=== PATIENT | male | born 1945 | race African-American/Black ===

== ENCOUNTER 2017-05-31 12:42 | Emergency (ER) | payer OTHER ==
[~2017-05-31] VITALS: Ht 172.7 cm; Wt 80.0 kg
[~2017-05-31 12:42] MED LIST: ATOR10TA PO; PHEN100C4 PO
[2017-05-31 12:45] VITALS: BP 147/93
== END 2017-05-31 13:55 | disposition home or self-care (01) ==
LOC: ER 13:14
DX: I10 Essential (primary) hypertension (principal); Z53.21 Procedure and treatment not carried out due to patient leaving prior to being seen by health care provider
CPT/HCPCS: 99283

== ENCOUNTER 2018-05-06 14:48 | Inpatient (IN) | payer OTHER ==
[~2018-05-06] VITALS: Ht 172.7 cm; Wt 85.7 kg
[2018-05-06] MEDS ORDERED: IPRATROPIUM BROMIDE (0.02%) 0.5MG/2.5ML NEB HHN STA (22:04)
[2018-05-06] MEDS ORDERED: METHYLPREDNISOLONE SOD SUCC 125 MG/2 ML VIAL IV STA (22:04)
[2018-05-06] MEDS ORDERED: ALBUTEROL (0.083%) 2.5MG/3ML NEB HHN STA (22:04)
[2018-05-06] MEDS ORDERED: ALBUTEROL (0.5%) 2.5MG/0.5ML NEB HHN ONE (22:20)
[2018-05-06 22:53] LABS: BASOPHILS % 0.6 % (0.0-2.0); EOSINOPHILS % 2.9 % (0.0-5.0); HEMATOCRIT. 40.4 % (42.0-52.0); HEMOGLOBIN. 14.1 g/dL (14.0-18.0); LYMPHOCYTES % 33.5 % (20.0-50.0); MEAN CORPUSCULAR VOLUME 88.7 fL (80.0-94.0); MEAN PLATELET VOLUME 9.4 fl (7.4-10.4); MONOCYTES % 7.1 % (2.0-8.0); NEUTROPHILS % 55.9 % (40.0-76.0); PLATELET 122 x1000/uL (130-400); RED BLOOD CELL COUNT 4.56 mill/uL (4.7-6.1)
[2018-05-06 22:58] LABS: CHLORIDE 107 mEq/L (98-107)
[2018-05-06 22:58] LABS: CLARITY URINE CLOUDY (CLEAR); COLOR URINE YELLOW (YELLOW); KETONES URINE NEGATIVE (NEGATIVE); LEUKOCYTE ESTERASE URINE 2+ (NEGATIVE); NITRITE URINE POSITIVE (NEGATIVE); OCCULT BLOOD URINE NEGATIVE (NEGATIVE); PROTEIN URINE NEGATIVE (NEGATIVE); SPECIFIC GRAVITY URINE 1.015 (1.005-1.030)
[2018-05-06 23:10] LABS: INR 2.1; PROTHROMBIN TIME 20.7 sec (9.1-11.1)
[2018-05-07] MEDS ORDERED: CEFTRIAXONE 1 G PREMIX 50 ML IV ONE (00:45)
[2018-05-07] MEDS ORDERED: IPRATROPIUM/ALBUTEROL 0.5-3(2.5)MG/3ML NEB HHN SCH (12:45)
[2018-05-07] MEDS ORDERED: SODIUM CHLORIDE 0.9% 1,000 ML IV SCH (12:45)
[2018-05-07] MEDS ORDERED: LEVETIRACETAM 250MG TABLET PO SCH (13:00)
[2018-05-07 17:30] VITALS: BP 146/83
[2018-05-07] MEDS ORDERED: ACETAMINOPHEN 325MG TABLET PO PRN (17:45)
[2018-05-07] MEDS ORDERED: ONDANSETRON HCL 4MG/2ML INJ IV PRN (17:45)
[2018-05-07] MEDS ORDERED: CLONIDINE 0.1MG TABLET PO PRN (17:45)
[2018-05-07] MEDS ORDERED: IPRATROPIUM/ALBUTEROL 0.5-3(2.5)MG/3ML NEB INH PRN (17:45)
[2018-05-07] MEDS ORDERED: LEVETIRACETAM 500 MG in SODIUM CHLORIDE 0.9% 100 ML IV SCH (18:00)
[2018-05-07] MEDS: DEXAMETHASONE 4MG/ML 1ML VIAL IV SCH (18:48)
[2018-05-07] MEDS: METHYLPREDNISOLONE SOD SUCC 40 MG/ML VIAL IV SCH (18:48)
[2018-05-07] MEDS ORDERED: SIMV10TA6 MT (19:22)
[2018-05-07] MEDS ORDERED: XALAO EACHEYE (19:22)
[2018-05-07] MEDS ORDERED: LEVE750T4 MT (19:22)
[2018-05-07] MEDS ORDERED: PANT20TA3 MT (19:22)
[2018-05-07] MEDS ORDERED: AMLO5TAB88 MT (19:22)
[2018-05-07] MEDS ORDERED: WARF3TAB58 PO (19:39)
[2018-05-07 20:00] VITALS: BP 144/86
[2018-05-07] MEDS ORDERED: DEXTROSE 50% WATER 50ML SYRINGE IV PRN (20:00)
[2018-05-07] MEDS: AZITHROMYCIN 500 MG in DEXT 5% WATER 250 ML IV SCH (20:06)
[2018-05-07] MEDS: FAMOTIDINE 20MG TABLET PO SCH (20:06)
[2018-05-07] MEDS: SODIUM CHLORIDE 0.9% 1,000 ML IV SCH (20:07)
[2018-05-07] MEDS: BLOOD SUGAR DIAGNOSTIC STRIP TEST SCH (20:07)
[2018-05-07] MEDS: INSULIN LISPRO 100 UNITS/ML SUBCUT SCH (21:00)
[2018-05-07] MEDS: IPRATROPIUM/ALBUTEROL 0.5-3(2.5)MG/3ML NEB HHN SCH (21:22)
[2018-05-07] MEDS: LEVETIRACETAM 500MG in SODIUM CHLORIDE 0.9% 100ML IV SCH (21:41)
[2018-05-07 22:00] VITALS: BP 149/78
[2018-05-08] VITALS (16 sets, daily range): BP systolic 103–159; BP diastolic 60–93
[2018-05-08 00:30] LABS: CREATINE KINASE 311 IU/L (39-308); CREATINE KINASE MB FRACTION 3.4 ng/mL (0.5-3.6)
[2018-05-08] MEDS: DEXAMETHASONE 4MG/ML 1ML VIAL IV SCH ×4 (00:46→18:00)
[2018-05-08] MEDS: CEFTRIAXONE 1 G PREMIX 50 ML IV SCH (00:47)
[2018-05-08] MEDS: IPRATROPIUM/ALBUTEROL 0.5-3(2.5)MG/3ML NEB HHN SCH ×6 (01:00→20:23)
[2018-05-08] MEDS: METHYLPREDNISOLONE SOD SUCC 40 MG/ML VIAL IV SCH ×2 (02:43→10:19)
[2018-05-08] MEDS: BLOOD SUGAR DIAGNOSTIC STRIP TEST SCH ×4 (06:21→21:07)
[2018-05-08] MEDS: SODIUM CHLORIDE 0.9% 1,000 ML IV SCH ×2 (06:22→21:16)
[2018-05-08 06:35] LABS: INR 1.9; PARTIAL THROMBOPLASTIN TIME 35.6 sec (23.4-31.0); PROTHROMBIN TIME 19.2 sec (9.1-11.1)
[2018-05-08 06:51] LABS: HEMATOCRIT. 41.2 % (42.0-52.0); HEMOGLOBIN. 14.2 g/dL (14.0-18.0); MEAN CORPUSCULAR HEMOGLOBIN 30.9 pg (28.0-32.0); MEAN CORPUSCULAR VOLUME 89.4 fL (80.0-94.0); MEAN PLATELET VOLUME 10.7 fl (7.4-10.4); PLATELET 134 x1000/uL (130-400); RED CELL DISTRIBUTION WIDTH 13.9 % (11.6-14.6)
[2018-05-08 06:59] LABS: CHLORIDE 108 mEq/L (98-107)
[2018-05-08 07:15] LABS: CREATINE KINASE 284 IU/L (39-308)
[2018-05-08] MEDS: INSULIN LISPRO 100 UNITS/ML SUBCUT SCH ×5 (07:20→21:00)
[2018-05-08] MEDS ORDERED: CEFTRIAXONE 1 G PREMIX 50 ML IV SCH (09:00)
[2018-05-08] MEDS ORDERED: GADOBENATE DIMEGLUMINE 529 MG/ML 10ML IV ONE (09:04)
[2018-05-08] MEDS: FAMOTIDINE 20MG TABLET PO SCH ×2 (10:17→21:16)
[2018-05-08] MEDS: LEVETIRACETAM 500MG in SODIUM CHLORIDE 0.9% 100ML IV SCH ×2 (10:17→22:28)
[2018-05-08 13:50] LABS: PLATELET ESTIMATE NORMAL
[2018-05-08] MEDS ORDERED: ACETAMINOPHEN 325MG TABLET PO PRN (16:00)
[2018-05-08] MEDS ORDERED: ACETAMINOPHEN 650MG SUPP PR PRN (16:00)
[2018-05-08 17:35] LABS: BG BASE EXCESS -1.1 mmol/L (-2.0-2.0); BG CARBOXYHEMOGLOBIN 0.9 % (0.5-1.5); BG DEOXYHEMOGLOBIN 4.8 % (0.0-5.0); BG FRACTION INSPIRED OXYGEN 21; BG HCO3 ACT 21.9 mmol/L (22.0-26.0); BG METHEMOGLOBIN 0.4 % (0.0-1.5); BG OXYGEN SATURATION 95.1 % (92.0-98.5); BG OXYHEMOGLOBIN 93.9 % (94.0-97.0); BG PCO2 32.2 mmHg (35.0-45.0); BG PO2 72.7 mmHg (75.0-100.0); BG SAMPLE SITE RIGHT RADIAL; BG TOTAL HEMOGLOBIN 15.1 g/dL (12.0-18.0); BG VENT MODE ROOM AIR
[2018-05-08] MEDS: AZITHROMYCIN 500 MG in DEXT 5% WATER 250 ML IV SCH (21:16)
[2018-05-08] MEDS: ENOXAPARIN 80MG/0.8ML SYR SUBCUT SCH (21:17)
[2018-05-09] VITALS (12 sets, daily range): BP systolic 96–158; BP diastolic 32–89
[2018-05-09] MEDS: IPRATROPIUM/ALBUTEROL 0.5-3(2.5)MG/3ML NEB HHN SCH ×6 (00:36→20:00)
[2018-05-09] MEDS: CEFTRIAXONE 1 G PREMIX 50 ML IV SCH (00:54)
[2018-05-09] MEDS: DEXAMETHASONE 4MG/ML 1ML VIAL IV SCH ×4 (00:54→18:08)
[2018-05-09] MEDS: BLOOD SUGAR DIAGNOSTIC STRIP TEST SCH ×4 (06:03→20:41)
[2018-05-09] MEDS: INSULIN LISPRO 100 UNITS/ML SUBCUT SCH ×4 (07:20→20:42)
[2018-05-09 07:33] LABS: CHLORIDE 109 mEq/L (98-107)
[2018-05-09 07:35] LABS: HEMATOCRIT 39.7 % (42.0-52.0); HEMOGLOBIN 13.7 g/dL (14.0-18.0); MEAN CORPUSCULAR HEMOGLOBIN 30.7 pg (28.0-32.0); MEAN CORPUSCULAR VOLUME 89.2 fL (80.0-94.0); PLATELET 130 x1000/uL (130-400); RED BLOOD CELL COUNT 4.45 mill/uL (4.7-6.1)
[2018-05-09 07:40] LABS: PHOSPHORUS 3.5 mg/dL (2.5-4.9)
[2018-05-09 07:41] LABS: LDL CHOLESTEROL 87 mg/dL (5-100)
[2018-05-09 07:43] LABS: HDL CHOLESTEROL 70 mg/dL (40-59); T4 FREE 0.81 ng/dL (0.76-1.46)
[2018-05-09] MEDS: ENOXAPARIN 80MG/0.8ML SYR SUBCUT SCH ×2 (08:25→20:43)
[2018-05-09] MEDS: FAMOTIDINE 20MG TABLET PO SCH ×2 (08:25→20:43)
[2018-05-09] MEDS: LEVETIRACETAM 500MG in SODIUM CHLORIDE 0.9% 100ML IV SCH ×2 (08:25→20:43)
[2018-05-09] MEDS ORDERED: IOHEXOL-350 100 ML BOTTLE ONE (13:59)
[2018-05-09] MEDS: SODIUM CHLORIDE 0.9% 1,000 ML IV SCH ×2 (18:07→23:02)
[2018-05-10] MEDS: IPRATROPIUM/ALBUTEROL 0.5-3(2.5)MG/3ML NEB HHN SCH ×6 (01:05→20:01)
[2018-05-10] MEDS: LEVOFLOXACIN 500MG PREMIX 100 ML IV SCH ×2 (01:18→20:15)
[2018-05-10 04:00] VITALS: BP 134/93
[2018-05-10 07:07] LABS: HEMATOCRIT 40.3 % (42.0-52.0); MEAN CORPUSCULAR VOLUME 88.8 fL (80.0-94.0); PLATELET 121 x1000/uL (130-400); RED BLOOD CELL COUNT 4.54 mill/uL (4.7-6.1); RED CELL DISTRIBUTION WIDTH 13.9 % (11.6-14.6)
[2018-05-10] MEDS: BLOOD SUGAR DIAGNOSTIC STRIP TEST SCH ×4 (07:10→20:46)
[2018-05-10] MEDS: DEXAMETHASONE 4MG/ML 1ML VIAL IV SCH ×2 (07:11→18:58)
[2018-05-10 07:13] LABS: INR 1.3; PROTHROMBIN TIME 13.4 sec (9.1-11.1)
[2018-05-10 07:28] LABS: CHLORIDE 106 mEq/L (98-107)
[2018-05-10] MEDS: INSULIN LISPRO 100 UNITS/ML SUBCUT SCH ×4 (07:40→20:46)
[2018-05-10] MEDS: FAMOTIDINE 20MG TABLET PO SCH ×2 (08:27→21:26)
[2018-05-10] MEDS: LEVETIRACETAM 500MG in SODIUM CHLORIDE 0.9% 100ML IV SCH ×2 (08:27→21:26)
[2018-05-10] MEDS: ENOXAPARIN 80MG/0.8ML SYR SUBCUT SCH ×2 (08:28→21:27)
[2018-05-10 12:00] VITALS: BP 118/64
[2018-05-10] MEDS: SODIUM CHLORIDE 0.9% 1,000 ML IV SCH (12:11)
[2018-05-10 16:00] VITALS: BP 121/64
[2018-05-10 20:00] VITALS: BP 132/70
[2018-05-10] MEDS ORDERED: AZITHROMYCIN 500 MG TABLET PO SCH (21:00)
[2018-05-11] VITALS: BP 119/64
[2018-05-11] MEDS: IPRATROPIUM/ALBUTEROL 0.5-3(2.5)MG/3ML NEB HHN SCH ×5 (00:24→15:42)
[2018-05-11] MEDS: SODIUM CHLORIDE 0.9% 1,000 ML IV SCH ×2 (02:04→16:02)
[2018-05-11 04:00] VITALS: BP 115/66
[2018-05-11] MEDS: DEXAMETHASONE 4MG/ML 1ML VIAL IV SCH (06:20)
[2018-05-11] MEDS: INSULIN LISPRO 100 UNITS/ML SUBCUT SCH ×2 (06:53→11:55)
[2018-05-11] MEDS: BLOOD SUGAR DIAGNOSTIC STRIP TEST SCH ×2 (06:53→11:55)
[2018-05-11 08:00] VITALS: BP 123/73
[2018-05-11] MEDS: LEVETIRACETAM 500MG in SODIUM CHLORIDE 0.9% 100ML IV SCH ×2 (08:21→21:36)
[2018-05-11] MEDS: ENOXAPARIN 80MG/0.8ML SYR SUBCUT SCH ×2 (08:21→20:39)
[2018-05-11] MEDS: FAMOTIDINE 20MG TABLET PO SCH ×2 (08:21→20:39)
[2018-05-11 12:46] VITALS: BP 117/69
[2018-05-11 16:09] VITALS: BP 121/67
[2018-05-11 20:00] VITALS: BP 129/71
[2018-05-11] MEDS: LEVOFLOXACIN 500MG TABLET PO SCH (20:39)
[2018-05-12] VITALS: BP 138/76
[2018-05-12] MEDS: IPRATROPIUM/ALBUTEROL 0.5-3(2.5)MG/3ML NEB HHN SCH ×8 (00:35→21:20)
[2018-05-12 04:00] VITALS: BP 125/68
[2018-05-12 06:39] LABS: HEMATOCRIT 38.3 % (42.0-52.0); HEMOGLOBIN 13.4 g/dL (14.0-18.0); MEAN CORPUSCULAR HEMOGLOBIN 31.3 pg (28.0-32.0); MEAN CORPUSCULAR VOLUME 89.3 fL (80.0-94.0); PLATELET 110 x1000/uL (130-400); RED BLOOD CELL COUNT 4.29 mill/uL (4.7-6.1); RED CELL DISTRIBUTION WIDTH 13.7 % (11.6-14.6)
[2018-05-12] MEDS: SODIUM CHLORIDE 0.9% 1,000 ML IV SCH ×3 (07:29→21:10)
[2018-05-12 07:50] LABS: CHLORIDE 109 mEq/L (98-107)
[2018-05-12 08:00] VITALS: BP 149/80
[2018-05-12] MEDS: FAMOTIDINE 20MG TABLET PO SCH ×2 (08:41→20:54)
[2018-05-12] MEDS: LEVETIRACETAM 500MG in SODIUM CHLORIDE 0.9% 100ML IV SCH ×2 (08:41→21:08)
[2018-05-12] MEDS: DEXAMETHASONE 4MG/ML 1ML VIAL IV SCH (08:42)
[2018-05-12] MEDS: ENOXAPARIN 80MG/0.8ML SYR SUBCUT SCH ×2 (08:43→20:54)
[2018-05-12] MEDS ORDERED: MAGNESIUM/ALUMINUM HYDROXIDE/SIMETHICONE 30ML UDC PO PRN (10:30)
[2018-05-12 12:00] VITALS: BP 104/68
[2018-05-12 16:39] VITALS: BP 125/62
[2018-05-12 20:00] VITALS: BP 113/68
[2018-05-12] MEDS: LEVOFLOXACIN 500MG TABLET PO SCH (20:54)
[2018-05-13] VITALS: BP 114/66
[2018-05-13] MEDS: IPRATROPIUM/ALBUTEROL 0.5-3(2.5)MG/3ML NEB HHN SCH ×5 (01:50→15:04)
[2018-05-13 04:00] VITALS: BP 126/72
[2018-05-13 08:00] VITALS: BP 116/55
[2018-05-13] MEDS: LEVETIRACETAM 500MG in SODIUM CHLORIDE 0.9% 100ML IV SCH (08:36)
[2018-05-13] MEDS: FAMOTIDINE 20MG TABLET PO SCH (08:36)
[2018-05-13] MEDS: DEXAMETHASONE 4MG/ML 1ML VIAL IV SCH (08:36)
[2018-05-13] MEDS: ENOXAPARIN 80MG/0.8ML SYR SUBCUT SCH (10:01)
[2018-05-13 12:00] VITALS: BP 116/79
[2018-05-13 15:42] VITALS: BP 116/79
[2018-05-13 16:00] VITALS: BP 143/80
== END 2018-05-13 19:40 | DRG 190 ==
LOC: ER 14:48 → 8WST 05-07 01:36 → EDBEDREQ 05-07 01:39 → ENRESERV 05-07 15:23 → 3WST 05-07 21:58 → 8WST 05-09 22:19
PROVIDERS: ADMIT Internal Medicine; ATTEND Internal Medicine
PROC: 4A00X4Z Measurement of Central Nervous Electrical Activity, External Approach (ICD-10-PCS; principal; 2018-05-09)
DX: J44.1 Chronic obstructive pulmonary disease with (acute) exacerbation (principal); G93.6 Cerebral edema; N39.0 Urinary tract infection, site not specified; M47.12 Other spondylosis with myelopathy, cervical region; D68.9 Coagulation defect, unspecified; E86.0 Dehydration; I10 Essential (primary) hypertension; G40.909 Epilepsy, unspecified, not intractable, without status epilepticus; G93.9 Disorder of brain, unspecified; K21.9 Gastro-esophageal reflux disease without esophagitis; M48.061 Spinal stenosis, lumbar region without neurogenic claudication; Z79.01 Long term (current) use of anticoagulants; Z85.841 Personal history of malignant neoplasm of brain; Z86.711 Personal history of pulmonary embolism; Z86.718 Personal history of other venous thrombosis and embolism; Z86.73 Personal history of transient ischemic attack (TIA), and cerebral infarction without residual deficits; Z92.3 Personal history of irradiation; Z92.21 Personal history of antineoplastic chemotherapy; R27.0 Ataxia, unspecified; B96.20 Unspecified Escherichia coli [E. coli] as the cause of diseases classified elsewhere; T38.0X5A Adverse effect of glucocorticoids and synthetic analogues, initial encounter; Y92.89 Other specified places as the place of occurrence of the external cause; R29.6 Repeated falls
CPT/HCPCS: 36415; 36600; 70544; 70553; 71045; 71275; 72141; 72148; 74174; 80048; 80061; 80185; 82375; 82550; 82553; 82805; 82962; 83036; 83735; 83880; 84100; 84439; 84443; 84484; 85027; 87077; 87186; 93005; 93306; 93970; 94640; 96365; 96366; 97112; 97116; 97162; 99285; A9577; J0456; J0696; J1100; J1650; J1815; J1953; J1956; J2920; J2930; J7030; J7050; J7060; J7611; J7620; Q9967

== ENCOUNTER 2018-06-17 17:01 | Inpatient (IN) | payer OTHER ==
[~2018-06-17] VITALS: Ht 170.2 cm; Wt 77.6 kg
[~2018-06-17 17:01] MED LIST changes: +AMLO5TAB88 MT; +LEVE750T4 MT; +PANT20TA3 MT; +SIMV10TA6 MT; +WARF3TAB58 PO; +XALAO EACHEYE
[2018-06-17 19:30] LABS: BASOPHILS % 0.5 % (0.0-2.0); EOSINOPHILS % 1.3 % (0.0-5.0); HEMATOCRIT. 44.5 % (42.0-52.0); HEMOGLOBIN. 15.8 g/dL (14.0-18.0); LYMPHOCYTES % 28.5 % (20.0-50.0); MEAN CORPUSCULAR HEMOGLOBIN 31.2 pg (28.0-32.0); MEAN CORPUSCULAR VOLUME 88.1 fL (80.0-94.0); MEAN PLATELET VOLUME 9.1 fl (7.4-10.4); MONOCYTES % 5.6 % (2.0-8.0); NEUTROPHILS % 64.1 % (40.0-76.0); PLATELET 111 x1000/uL (130-400); RED BLOOD CELL COUNT 5.05 mill/uL (4.7-6.1); RED CELL DISTRIBUTION WIDTH 14.4 % (11.6-14.6)
[2018-06-17] MEDS ORDERED: LEVETIRACETAM IV SCH (19:30)
[2018-06-17] MEDS ORDERED: DEXAMETHASONE 10 MG/ML VIAL IV ONE (19:30)
[2018-06-17] MEDS ORDERED: SODIUM CHLORIDE 0.9% IV SCH (19:30)
[2018-06-17 19:33] LABS: CHLORIDE 107 mEq/L (98-107)
[2018-06-17 19:39] LABS: ETHANOL BLOOD < 10 mg/dL
[2018-06-17 19:42] LABS: CREATINE KINASE 148 IU/L (39-308)
[2018-06-17] MEDS ORDERED: IPRATROPIUM/ALBUTEROL 0.5-3(2.5)MG/3ML NEB HHN ONE (19:45)
[2018-06-17] MEDS ORDERED: IOHEXOL-350 100 ML BOTTLE ONE (21:02)
[2018-06-17 21:17] LABS: CLARITY URINE CLEAR (CLEAR); COLOR URINE YELLOW (YELLOW); KETONES URINE 1+ (NEGATIVE); LEUKOCYTE ESTERASE URINE NEGATIVE (NEGATIVE); NITRITE URINE NEGATIVE (NEGATIVE); OCCULT BLOOD URINE NEGATIVE (NEGATIVE); PROTEIN URINE NEGATIVE (NEGATIVE); SPECIFIC GRAVITY URINE 1.047 (1.005-1.030)
[2018-06-17 21:24] LABS: *AMPHETAMINES SCREEN URINE NEGATIVE (NEGATIVE); *BARBITURATES SCREEN URINE NEGATIVE (NEGATIVE); *BENZODIAZEPINES SCREEN URINE NEGATIVE (NEGATIVE); *COCAINE SCREEN URINE NEGATIVE (NEGATIVE); METHADONE URINE SCREEN NEGATIVE (NEGATIVE); OPIATES URINE SCREEN NEGATIVE (NEGATIVE)
[2018-06-17 21:25] LABS: CANNABINOID URINE SCREEN PRESUMTIVE POSITIVE (NEGATIVE); PHENCYCLIDINE URINE SCREEN NEGATIVE (NEGATIVE)
[2018-06-17 22:00] VITALS: BP 135/74
[2018-06-17] MEDS ORDERED: ACETAMINOPHEN 325MG TABLET PO PRN (22:00)
[2018-06-17] MEDS ORDERED: IPRATROPIUM/ALBUTEROL 0.5-3(2.5)MG/3ML NEB INH PRN (22:00)
[2018-06-17] MEDS ORDERED: ONDANSETRON HCL 4MG/2ML INJ IV PRN (22:00)
[2018-06-17 22:23] VITALS: BP 124/79
[2018-06-17 22:30] VITALS: BP 137/68
[2018-06-17] MEDS ORDERED: HYDRALAZINE 20MG/ML VIAL IV PRN (22:45)
[2018-06-17] MEDS ORDERED: MORPHINE SULFATE 4 MG/ML CPJ (NOT FOR IM USE) IV PRN (22:52)
[2018-06-17 23:00] VITALS: BP 120/64
[2018-06-17 23:30] VITALS: BP 121/80
[2018-06-17 23:32] LABS: INR 1.6; PARTIAL THROMBOPLASTIN TIME 39.4 sec (23.4-31.0); PROTHROMBIN TIME 16.5 sec (9.6-11.0)
[2018-06-18] VITALS (49 sets, daily range): BP systolic 105–146; BP diastolic 55–112
[2018-06-18 05:55] LABS: CHLORIDE 107 mEq/L (98-107)
[2018-06-18 05:57] LABS: BASOPHILS % 0.2 % (0.0-2.0); EOSINOPHILS % 0.1 % (0.0-5.0); HEMOGLOBIN. 15.9 g/dL (14.0-18.0); LYMPHOCYTES % 15.1 % (20.0-50.0); MEAN CORPUSCULAR HEMOGLOBIN 31.2 pg (28.0-32.0); MEAN CORPUSCULAR VOLUME 88.5 fL (80.0-94.0); MEAN PLATELET VOLUME 10.4 fl (7.4-10.4); MONOCYTES % 1.6 % (2.0-8.0); PLATELET 110 x1000/uL (130-400); RED BLOOD CELL COUNT 5.09 mill/uL (4.7-6.1)
[2018-06-18 06:03] LABS: LDL CHOLESTEROL 115 mg/dL (5-100)
[2018-06-18 06:04] LABS: HDL CHOLESTEROL 78 mg/dL (40-59)
[2018-06-18 06:05] LABS: T4 FREE 1.04 ng/dL (0.76-1.46)
[2018-06-18] MEDS: PANTOPRAZOLE SODIUM 40 MG/VIAL IV SCH (09:22)
[2018-06-18] MEDS: LEVETIRACETAM 500 MG in SODIUM CHLORIDE 0.9% 100 ML IV SCH ×2 (09:23→20:37)
[2018-06-18] MEDS: DEXT 5%/LACTATED RINGERS 1,000 ML IV SCH ×2 (09:23→23:30)
[2018-06-18] MEDS ORDERED: MAGNESIUM/ALUMINUM HYDROXIDE/SIMETHICONE 30ML UDC PO PRN (12:45)
[2018-06-18] MEDS ORDERED: LORAZEPAM 2MG/ML CPJ IV PRN (12:45)
[2018-06-18] MEDS ORDERED: DOCUSATE SODIUM 100MG CAPSULE PO PRN (12:45)
[2018-06-18] MEDS ORDERED: CLONIDINE 0.1MG TABLET PO PRN (12:45)
[2018-06-18] MEDS ORDERED: DEXTROSE 50% WATER 50ML SYRINGE IV PRN (12:45)
[2018-06-18] MEDS: DEXAMETHASONE 4MG/ML 1ML VIAL IV SCH ×3 (13:13→23:30)
[2018-06-18] MEDS: DIPHENHYDRAMINE 50MG/ML VIAL IV PRN (13:13)
[2018-06-18] MEDS: BLOOD SUGAR DIAGNOSTIC STRIP TEST SCH ×2 (16:30→20:38)
[2018-06-18] MEDS: INSULIN LISPRO 100 UNITS/ML SUBCUT SCH ×2 (18:16→20:38)
[2018-06-18] MEDS: ATORVASTATIN CALCIUM 20MG TABLET PO SCH (20:38)
[2018-06-19] VITALS (39 sets, daily range): BP systolic 114–164; BP diastolic 65–101
[2018-06-19 05:56] LABS: HEMATOCRIT 39.2 % (42.0-52.0); HEMOGLOBIN 13.8 g/dL (14.0-18.0); MEAN CORPUSCULAR HEMOGLOBIN 31.2 pg (28.0-32.0); MEAN CORPUSCULAR VOLUME 88.3 fL (80.0-94.0); PLATELET 116 x1000/uL (130-400); RED BLOOD CELL COUNT 4.44 mill/uL (4.7-6.1)
[2018-06-19 06:13] LABS: CHLORIDE 107 mEq/L (98-107)
[2018-06-19] MEDS: BLOOD SUGAR DIAGNOSTIC STRIP TEST SCH ×4 (06:13→21:10)
[2018-06-19] MEDS: DEXAMETHASONE 4MG/ML 1ML VIAL IV SCH ×2 (06:13→12:56)
[2018-06-19] MEDS: INSULIN LISPRO 100 UNITS/ML SUBCUT SCH ×4 (06:14→21:10)
[2018-06-19 06:28] LABS: INR 1.4; PROTHROMBIN TIME 14.6 sec (9.6-11.0)
[2018-06-19] MEDS: LEVETIRACETAM 500 MG in SODIUM CHLORIDE 0.9% 100 ML IV SCH ×2 (08:45→21:10)
[2018-06-19] MEDS: PANTOPRAZOLE SODIUM 40 MG/VIAL IV SCH (08:45)
[2018-06-19] MEDS: DIPHENHYDRAMINE 50MG/ML VIAL IV PRN (12:56)
[2018-06-19] MEDS: DEXT 5%/LACTATED RINGERS 1,000 ML IV SCH (17:12)
[2018-06-19] MEDS: ATORVASTATIN CALCIUM 20MG TABLET PO SCH (21:09)
[2018-06-20 04:00] VITALS: BP 160/86
[2018-06-20] MEDS: BLOOD SUGAR DIAGNOSTIC STRIP TEST SCH ×2 (06:23→12:20)
[2018-06-20 06:26] LABS: HEMATOCRIT 43.6 % (42.0-52.0); HEMOGLOBIN 15.5 g/dL (14.0-18.0); MEAN CORPUSCULAR HEMOGLOBIN 31.3 pg (28.0-32.0); MEAN CORPUSCULAR VOLUME 88.2 fL (80.0-94.0); PLATELET 122 x1000/uL (130-400); RED BLOOD CELL COUNT 4.94 mill/uL (4.7-6.1)
[2018-06-20 06:42] LABS: CHLORIDE 108 mEq/L (98-107)
[2018-06-20] MEDS: INSULIN LISPRO 100 UNITS/ML SUBCUT SCH ×2 (07:50→12:50)
[2018-06-20 08:00] VITALS: BP 135/78
[2018-06-20] MEDS: LEVETIRACETAM 500 MG in SODIUM CHLORIDE 0.9% 100 ML IV SCH (09:05)
[2018-06-20 12:47] VITALS: BP 137/81
== END 2018-06-20 15:48 | DRG 100 ==
LOC: ER 18:07 → MICUSO 20:32 → EDBEDREQ 20:34 → EDBEDREQTM 20:34 → ENRESERV 20:53 → 6WST 06-19 20:17
PROVIDERS: ADMIT Internal Medicine; ATTEND Internal Medicine
DX: G40.909 Epilepsy, unspecified, not intractable, without status epilepticus (principal); G93.6 Cerebral edema; G81.94 Hemiplegia, unspecified affecting left nondominant side; C71.1 Malignant neoplasm of frontal lobe; I10 Essential (primary) hypertension; R06.00 Dyspnea, unspecified; E78.5 Hyperlipidemia, unspecified; D69.6 Thrombocytopenia, unspecified; R73.9 Hyperglycemia, unspecified; T45.515A Adverse effect of anticoagulants, initial encounter; Y92.89 Other specified places as the place of occurrence of the external cause; Z85.841 Personal history of malignant neoplasm of brain; Z86.711 Personal history of pulmonary embolism; Z79.01 Long term (current) use of anticoagulants; Z79.899 Other long term (current) drug therapy
CPT/HCPCS: 36415; 71275; 80048; 80061; 80305; 80320; 82542; 82550; 82962; 83036; 83605; 83880; 84439; 84443; 84484; 85027; 92610; 93005; 93970; 93971; 96372; 96374; 97110; 97162; 97166; 99291; A6261; C9113; J1100; J1200; J1815; J1953; J7040; J7050; J7121; J7620; Q9967; G0480